=== PATIENT | female | born 1965 | race Caucasian/White ===

== ENCOUNTER 2017-12-13 18:57 | Emergency (ER) | payer OTHER ==
[~2017-12-13] VITALS: Ht 175.3 cm; Wt 86.2 kg
[~2017-12-13 18:57] MED LIST: ACET-687 PO; ASPI-667 PO; HYDR25TA9 PO; META10TA PO
[2017-12-13 19:13] VITALS: BP 177/103
[2017-12-13 20:30] VITALS: BP 167/86
--- NOTE | 2017-12-13 20:46 | DIREP ---
PROCEDURE:XRAY NECK SOFT TISSUES COMPARISON:None. INDICATIONS:INJURY TECHNIQUE: Frontal and lateral views FINDINGS: Nasopharynx:Normal. Oropharynx:Normal. Larynx and hypopharynx: Normal. Subglottic airway:Normal. Retropharyngeal soft tissues:Normal. Adenoids:Normal Epiglottis:Normal Other:Disc narrowing C5-6 and C6-7 with mild anterior osteophytes from C4 through C7. CONCLUSION:Normal soft tissues of the neck. Dictated by: Omar Feldman M.D. on 12/13/2017 at 08:45 PM
[2017-12-13] MEDS ORDERED: TORADOL ONE (20:54)
[2017-12-13] MEDS ORDERED: TORADOL IM ONE (21:00)
[2017-12-13 21:13] VITALS: BP 177/103
--- NOTE | 2017-12-13 21:18 | ER.PDOC ---
General Chief Complaint: Neck/Upper back Pain Stated Complaint: NECK PAIN Time seen by MD: 20:00 Source: patient Exam Limitations: no limitations History of Present Illness Initial Comments Pt presents with neck pain x 4 weeks. No history of trauma. Timing/Duration: other (more than 4 weeks.) Severity/Quality: moderate Method of Injury: unknown Associated Symptoms: denies symptoms Allergies: Coded Allergies: Penicillins (Verified Allergy, Unknown, Rash, 08/28/16) Home Meds Reported Medications Aspirin (ASPIRIN) 81 Mg Tab.chew, 1 TAB PO DAILY, #30 TAB 3 Refills 08/30/16 Hydrochlorothiazide (HYDROCHLOROTHIAZIDE) 25 Mg Tablet, 1 TAB PO DAILY, #30 TAB 5 Refills 08/30/16 Acetaminophen With Codeine (TYLENOL WITH CODEINE #4 TABLET) 1 Each Tablet, 1 TAB PO QID, #120 TAB 08/30/16 Aspirin (ASPIRIN) 81 Mg Tab.chew, 1 TAB PO DAILY, #30 TAB 3 Refills 08/28/16 Metaproterenol Sulfate (METAPROTERENOL SULFATE) 10 Mg Tablet, 10 MG PO DAILY, TABLET 08/28/16 Past Medical History Medical History: hypertension Surgical History: back, other (bilateral tubal ligation.) LMP (females 10-50): postmenopause Family History Significant Family History: no pertinent family hx Social History Smoking: less than 1 pack/day Alcohol Use: occassionally Drug Use: none Review of Systems Constitutional: no symptoms reported EENTM: no symptoms reported Respiratory: no symptoms reported Cardiovascular: no symptoms reported Gastrointestinal: no symptoms reported Genitourinary: no symptoms reported Musculoskeletal: no symptoms reported Skin: no symptoms reported Physical Exam General Appearance: Anxious, Moderate Distress HEENT: PERRL/EOMI, Normal ENT Inspection, TMs Normal, Pharynx Normal Neck: Normal Alignment, Normal Inspection, Limited Range of Motion, Muscle Spasm, Tenderness (TEnderness+ over the left Trapezius muscle.) Gastrointestinal: No Organomegaly, Non Tender Extremities: Normal Range of Motion, Non-Tender, No Pedal Edema Neuro/Psych: Alert, belt polisher nml/symmetrical, mood/effect nml, No Motor/Sensory Deficits Skin: Warm/Dry Results/Orders Results/Orders Administered Medications Medications (Trade) Dose Ordered Sig/Jamel Route PRN Reason Start Time Stop Time Status Last Admin Dose Admin Ketorolac Tromethamine (Toradol) 60 mg OT ONCE IM 12/13/17 21:00 12/13/17 21:02 DC 12/13/17 21:03 Progress Progress Xray: [id number] degenerative disease. For Toradol 60mg IM x 1. Departure Time of Disposition: 21:18 Disposition: 01 HOME, SELF-CARE Impression: Primary Impression: Neck pain Condition: Stable Referrals: PCP,UNKNOWN (PCP) PRIMARY CARE PROVIDER Additional Instructions: Take Motrin/Tylenol for pain. f/u with PCP. Duration or Time Spent with Pa: 30mins. ROXY VEGA MD Dec 13, 2017 21:18
== END 2017-12-13 21:20 | disposition home or self-care (01) ==
LOC: ER 18:57
DX: M54.2 Cervicalgia (principal); I10 Essential (primary) hypertension; Z79.82 Long term (current) use of aspirin; Z88.0 Allergy status to penicillin; Z79.899 Other long term (current) drug therapy
CPT/HCPCS: 70360; 96372; 99284; J1885

== ENCOUNTER 2018-08-30 22:13 | Emergency (ER) | payer OTHER ==
[~2018-08-30] VITALS: Ht 175.3 cm; Wt 78.0 kg
[2018-08-30] MEDS ORDERED: ULTRAM PO STA (22:35)
[2018-08-30] MEDS ORDERED: PREDNISONE PO STA (22:35)
[2018-08-30] MEDS ORDERED: PREDNISONE ONE (22:37)
[2018-08-30] MEDS ORDERED: ULTRAM ONE (22:38)
--- NOTE | 2018-08-30 22:45 | ER.PDOC ---
General Chief Complaint: Extremities Stated Complaint: FOOT PAIN Time seen by MD: 22:30 Source: patient Exam Limitations: no limitations History of Present Illness Initial Comments Bilat foot pain. Onset 3 to 4 days ago. States recurrent issue due to prolonged standing and walking on her job. No trauma. No other joint pain. Onset: other Where: work Severity: moderate Exacerbated By: walking movement Relieved By: rest Prior symptoms/Treatment: Similar symptoms previous Allergies: Coded Allergies: Penicillins (Verified Allergy, Unknown, Rash, 08/28/16) Home Meds Reported Medications Aspirin (ASPIRIN) 81 Mg Tab.chew, 1 TAB PO DAILY, #30 TAB 3 Refills 08/30/16 Hydrochlorothiazide (HYDROCHLOROTHIAZIDE) 25 Mg Tablet, 1 TAB PO DAILY, #30 TAB 5 Refills 08/30/16 Acetaminophen With Codeine (TYLENOL WITH CODEINE #4 TABLET) 1 Each Tablet, 1 TAB PO QID, #120 TAB 08/30/16 Aspirin (ASPIRIN) 81 Mg Tab.chew, 1 TAB PO DAILY, #30 TAB 3 Refills 08/28/16 Metaproterenol Sulfate (METAPROTERENOL SULFATE) 10 Mg Tablet, 10 MG PO DAILY, TABLET 08/28/16 Past Medical History Medical History: CVA/TIA/stroke, hypertension Surgical History: back, tubal LMP (females 10-50): postmenopause Social History Alcohol Use: none Drug Use: none Review of Systems Constitutional: no symptoms reported Respiratory: no symptoms reported Cardiovascular: no symptoms reported Musculoskeletal: see HPI Skin: no symptoms reported Psychiatric/Neurological: no symptoms reported All Other Systems: Reviewed and Negative Physical Exam General Appearance: Alert, No Apparent Distress Lower Extremity: no pedal edema, tenderness (Bilat feet with foot joint manipulation. No swelling or deformity. No discoloration. ) Vascular: no vascular compromise, pulses full/equal Neuro/Psych: sensation nml, motor nml, oriented x3, CN's nml as tested Skin: color nml, warm/dry Back/Neck: nml inspection Respiratory: no resp distress, breath sounds nml CVS: reg rate & rhythm, heart sounds nml Departure Time of Disposition: 22:42 Disposition: 01 HOME, SELF-CARE Impression: Primary Impression: Arthritis of foot Condition: Stable Patient Instructions: Diabetes and Foot Care Referrals: PCP,UNKNOWN (PCP) PRIMARY CARE PROVIDER APOLINAR MAN MD Additional Instructions: Elevate, ice. Follow up this week with your doctor. Duration or Time Spent with Pa: 15 RUBEN OLSON DO Aug 30, 2018 22:45
[2018-08-30 22:51] VITALS: BP 166/88
== END 2018-08-30 22:50 | disposition home or self-care (01) ==
LOC: ER 22:13
DX: M19.072 Primary osteoarthritis, left ankle and foot (principal); M19.071 Primary osteoarthritis, right ankle and foot; I10 Essential (primary) hypertension; Z86.73 Personal history of transient ischemic attack (TIA), and cerebral infarction without residual deficits; Z98.51 Tubal ligation status; Z98.890 Other specified postprocedural states; Z88.0 Allergy status to penicillin; Z79.82 Long term (current) use of aspirin; Z79.1 Long term (current) use of non-steroidal anti-inflammatories (NSAID); Z79.899 Other long term (current) drug therapy
CPT/HCPCS: 99283; J7512

== ENCOUNTER 2021-09-19 12:05 | Emergency (ER) | payer OTHER ==
[~2021-09-19] VITALS: Ht 172.7 cm; Wt 77.1 kg
[~2021-09-19 12:05] MED LIST changes: +CEPH-350 PO; +CYCL10TA19 PO; +GLIM2TAB7 PO; +KETO10TA PO; +LISI20TA21 PO; +METF500T PO; +TRAM-47 PO
--- NOTE | 2021-09-19 12:25 | NUR ---
ARRIVAL PT ARRIVED TO ED WITH C/O LEFT GROIN PAIN WHEN STANDING UPRIGHT THAT STARTED YESTERDAY AND PT STATES THAT TODAY WHEN SHE WOKE UP HER LEFT FOOT IS BURNING AND SWOLLEN AND SHE HAS A HEADACHE. PT DENIES TAKING ANY MEDICATION FOR SYMPTOMS. PT REPORTS SHE HAS NOT TAKEN HER BLOOD PRESSURE MEDICATION FOR 3 MONTHS. BEDSIDE MONITORS APPLIED. VITAL SIGNS STABLE. BED IN LOW LOCKED POSITION.
[2021-09-19 12:35] VITALS: BP 160/86
[2021-09-19 12:42] VITALS: BP 160/86
--- NOTE | 2021-09-19 13:25 | ER.PDOC ---
General Chief Complaint: Extremities Stated Complaint: SWELLING LEFT FOOT/HEADACHE/FEVER/CHILLS Time seen by MD: 12:55 Source: patient Exam Limitations: no limitations History of Present Illness Initial Comments This is a 56-year-old female comes to the emergency department with left foot pain, swelling, and groin pain on the left side. She also has a fever. She also has some chronic pain issues including right upper quadrant pain that has been ongoing for several months. She has diabetes and she has not been taking medication because she does not have a primary doctor and has not been filling out any prescriptions other than she does take Metformin. She is supposed to take glipizide as well as lisinopril for high blood pressure. She had been seen at the [facility] clinic in the past, but has not followed up with anybody for the past several months. Her main reason for here is the fact that she has pain and swelling of the left leg. Recent Injury: No Severity: moderate Exacerbated By: walking movement Relieved By: nothing Prior symptoms/Treatment: Similar symptoms previous Allergies: Coded Allergies: Penicillins (Verified Allergy, Unknown, Rash, 08/28/16) Home Meds Active Scripts Cephalexin (KEFLEX) 500 Mg Capsule, 500 MG PO TID for 14 Days, CAPSULE Prov:BARBARA PEMBERTON NP 06/28/20 Lisinopril (LISINOPRIL) 20 Mg Tablet, 20 MG PO DAILY24 for 30 Days, #30 TAB Prov:IMMANUEL ALCATNAR MD 06/20/20 Glimepiride (GLIMEPIRIDE) 2 Mg Tablet, 2 MG PO BID for 30 Days, #60 TAB Prov:IMMANUEL ALCANTAR MD 06/20/20 Metformin Hcl (GLUCOPHAGE) 500 Mg Tablet, 1000 MG PO BID for 30 Days, #120 TAB Prov:IMMANUEL ALCANTAR MD 06/20/20 Ketorolac Tromethamine (KETOROLAC TROMETHAMINE) 10 Mg Tablet, 10 MG PO Q6H PRN for PAIN 4 - 6 for 5 Days, #14 TAB Prov:IMMANUEL ALCANTAR MD 06/20/20 Cyclobenzaprine Hcl (FLEXERIL) 10 Mg Tablet, 10 MG PO Q8 PRN for MUSCLE SPASM for 5 Days, #14 TAB Prov:IMMANUEL ALCANTAR MD 06/20/20 Reported Medications Tramadol Hcl (ULTRAM) 50 Mg Tablet, 1-2 TAB PO Q6HR PRN for pain MDD 2 Tablet(s), #15 TAB 0 Refills 06/20/20 Aspirin (ASPIRIN) 81 Mg Tab.chew, 1 TAB PO DAILY, #30 TAB 3 Refills 08/30/16 Hydrochlorothiazide (HYDROCHLOROTHIAZIDE) 25 Mg Tablet, 1 TAB PO DAILY, #30 TAB 5 Refills 08/30/16 Acetaminophen With Codeine (TYLENOL WITH CODEINE #4 TABLET) 1 Each Tablet, 1 TAB PO QID, #120 TAB 08/30/16 Metaproterenol Sulfate (METAPROTERENOL SULFATE) 10 Mg Tablet, 10 MG PO DAILY, TABLET 08/28/16 Past Medical History Medical History: diabetes, hypertension Surgical History: knee, tubal, other Social History Alcohol Use: heavy Drug Use: none Review of Systems Constitutional: denies no symptoms reported, denies see HPI, denies chills, denies diaphoresis, denies fever, denies malaise, denies weakness, denies other EENTM: denies no symptoms reported, denies see HPI, denies eye pain, denies blurred vision, denies tearing, denies double vision, denies ear pain, denies ear discharge, denies nose pain, denies nose congestion, denies throat pain, denies throat swelling, denies mouth pain, denies mouth swelling, denies other Respiratory: denies no symptoms reported, denies see HPI, denies cough, denies orthopnea, denies shortness of breath, denies stridor, denies wheezing, denies other Cardiovascular: denies no symptoms reported, denies see HPI, denies chest pain, denies edema, denies palpitations, denies syncope, denies other Gastrointestinal: denies no symptoms reported, denies see HPI, denies abdominal pain, denies constipation, denies diarrhea, denies nausea, denies vomiting, denies other Genitourinary: denies no symptoms reported, denies see HPI, denies discharge, denies dysuria, denies frequency, denies hematuria, denies pain, denies other Musculoskeletal: denies no symptoms reported, denies see HPI, denies back pain, denies gout, denies joint pain, denies joint swelling, denies muscle pain, denies muscle stiffness, denies neck pain, denies other Skin: denies no symptoms reported, denies see HPI; change in color; denies change in hair/nails, denies dryness, denies lesions, denies lumps, denies rash, denies other Psychiatric/Neurological: denies no symptoms reported, denies see HPI, denies anxiety, denies depressed, denies emotional problems, denies headache, denies numbness, denies paresthesia, denies pre-existing deficit, denies seizure, denies tingling, denies tremors, denies weakness, denies other All Other Systems: Reviewed and Negative Physical Exam General Appearance: Alert, No Apparent Distress Lower Extremity: tenderness, swelling, pedal edema (Erythema on the left leg, extends from the ankle to the knee. The patient has tenderness to the left groin area where there is lymphadenopathy noted.) Joint Exam: joints nml, nml ROM, nml gait/weight bearing Vascular: no vascular compromise, pulses full/equal Neuro/Psych: sensation nml, motor nml, oriented x3, CN's nml as tested, mood/affect nml Skin: color nml, warm/dry, no rash Back/Neck: nml inspection EENT: eyes inspection nml, ENT inspection nml, pharynx nml Respiratory: no resp distress, breath sounds nml CVS: reg rate & rhythm, heart sounds nml Abdomen: non-tender, no organomegaly, no bruit/mass Results/Orders Results/Orders Orders - DEDE VITAL MD Cbc With Auto Diff (09/19/21 13:25) D-Dimer (09/19/21 13:25) Comprehensive Metabolic Panel (09/19/21 13:25) Vital Signs Date Time Temp Pulse Resp B/P (MAP) Pulse Ox O2 Delivery O2 Flow Rate FiO2 09/19/21 12:42 99.1 110 18 160/86 (110) 99 Room Air 09/19/21 12:35 99.1 110 18 09/19/21 12:35 99.1 110 18 99 09/19/21 12:35 99.1 110 18 160/86 (110) 99 Room Air Laboratory Tests Test 09/19/21 13:34 White Blood Count 16.5 10^3/uL (4.5-11.0) H Red Blood Count 4.61 10^6/uL (4.00-5.20) Hemoglobin 14.8 g/dL (12.0-15.0) Hematocrit 44.7 % (36.0-46.0) Mean Corpuscular Volume 97.0 fL (78-100) Mean Corpuscular Hemoglobin 32.1 pg (26-34) Mean Corpuscular Hemoglobin Concent 33.1 g/dL (33-36.5) Red Cell Distribution Width 13.0 % (11.5-14.5) Platelet Count 90 10^3/uL (150-400) L Mean Platelet Volume 11.6 fL (7.8-11.0) H Neutrophils (%) (Auto) 84.8 % (41.0-85.0) Lymphocytes (%) (Auto) 9.4 % (24.0-44.0) L Monocytes (%) (Auto) 5.3 % (5.0-12.0) Neutrophils # (Auto) 14.0 10^3/uL (1.8-7.7) H Lymphocytes # (Auto) 1.55 10^3/uL1 (1.0-4.8) Monocytes # (Auto) 0.9 10^3/uL (0.3-0.8) H Absolute Immature Granulocyte (auto 0.05 10^3 u/L (0-2) Absolute Eosinophils (auto) 0.0 10^3/uL (0.0-0.2) Immature Granulocytes % 0.30 % (0.00-0.50) Eosinophils % 0.1 % (0.0-5.0) Basophils % 0.1 % (0.0-0.2) Basophils # 0.0 10^3/uL (0.0-0.1) D-Dimer 0.24 mg/L (0.19-0.49) Sodium Level 130 mmol/L (132-145) L Potassium Level 5.3 mmol/L (3.6-5.2) H Chloride Level 97.0 mmol/L (96-109) Carbon Dioxide Level 24.5 mmol/L (20.0-32) Anion Gap 13.8 Blood Urea Nitrogen 10 mg/dL (7-18) Creatinine 0.58 mg/dL (0.59-1.40) L Estimated GFR () 130.6 (>/=60) Est GFR (CKD-EPI)(Non-Afr Lao) 107.9 (>/=60) BUN/Creatinine Ratio 17.0 Glucose Level 299 mg/dL (70-110) H Calcium Level 9.4 mg/dL (8.4-10.5) Total Bilirubin 1.6 mg/dL (0.2-1.0) H Aspartate Amino Transferase (AST) 139 U/L (0-35) H Alanine Aminotransferase (ALT) 127 U/L (12-78) H Alkaline Phosphatase 119 U/L (50-136) Total Protein 7.3 g/dL (6.4-8.2) Albumin 2.8 g/dL (3.4-5.0) L Globulin 4.5 Albumin/Globulin Ratio 0.622 ER DEPART Departure Time of Disposition: 14:10 Disposition: 01 HOME / SELF CARE / HOMELESS Impression: Primary Impression: Cellulitis Condition: Stable Patient Instructions: Cellulitis Referrals: PCP,UNKNOWN (PCP) PRIMARY CARE PROVIDER Additional Instructions: Take antibiotics until they are all gone. [facility]up with [facility] to help treat your diabetes. Comments The patient was given a prescription for clindamycin, glipizide, and lisinopril. Duration or Time Spent with Pa: Unknown Problem Qualifiers Primary Impression: Cellulitis Site of cellulitis: extremity Site of cellulitis of extremity: lower extremity Laterality: right Qualified Codes: L03.115 - Cellulitis of right lower limb DEDE VITAL MD Sep 19, 2021 13:25
[2021-09-19 13:39] LABS: BASOPHIL % 0.1 % (0.0-0.2); EOSINOPHIL % 0.1 % (0.0-5.0); LYMPHOCYTES # 1.55 10^3/uL1 (1.0-4.8); LYMPHOCYTES % 9.4 % (24.0-44.0); MEAN CORP HGB 32.1 pg (26-34); MONOCYTES # 0.9 10^3/uL (0.3-0.8); MONOCYTES % 5.3 % (5.0-12.0); NEUTROPHILS % 84.8 % (41.0-85.0); PLATELET COUNT 90 10^3/uL (150-400)
[2021-09-19 14:00] LABS: CALCIUM 9.4 mg/dL (8.4-10.5); CARBON DIOXIDE 24.5 mmol/L (20.0-32)
[2021-09-19 14:38] VITALS: BP 166/84
== END 2021-09-19 14:42 | disposition home or self-care (01) ==
LOC: ER 12:05
DX: L03.115 Cellulitis of right lower limb (principal); R50.9 Fever, unspecified; G89.29 Other chronic pain; R10.11 Right upper quadrant pain; I10 Essential (primary) hypertension; E11.9 Type 2 diabetes mellitus without complications; Z79.82 Long term (current) use of aspirin; Z79.84 Long term (current) use of oral hypoglycemic drugs; Z79.899 Other long term (current) drug therapy; Z88.0 Allergy status to penicillin
CPT/HCPCS: 36415; 80053; 85025; 85379; 99283